=== PATIENT | female | born 1970 | race Caucasian/White ===

== ENCOUNTER → 2020-12-19 | Outpatient (CLI) | payer OTHER ==
--- NOTE | 2020-12-19 14:46 | XR ---
Lumbosacral spine HISTORY: M [age] views of lumbosacral spine Rudimentary rib noted at L1. Sclerosis is present in the posterior elements of the lower lumbar spine . Suspect bilateral spondylolysis at L5, there is anterolisthesis grade 1 L5-S1. Loss of disc height is also present at this level with vacuum phenomenon, there is associated spondylosis. Lumbar vertebr al bodies show preserved height and bone mineralization. Surgical clips present in the right upper qu adrant. 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 Facet arthropathy change.
== END | disposition home or self-care (01) ==
LOC: RADXRMAIN 10:57
PROVIDERS: ATTEND Family Medicine
DX: M51.37 Other intervertebral disc degeneration, lumbosacral region (principal); M43.17 Spondylolisthesis, lumbosacral region; M47.817 Spondylosis without myelopathy or radiculopathy, lumbosacral region
CPT/HCPCS: 72110